=== PATIENT | female | born 1985 | race Caucasian/White ===

== ENCOUNTER 2016-10-24 09:19 | Inpatient (IN) | payer OTHER ==
--- NOTE | 2016-10-24 10:05 | OBHP ---
Datetime: 10/24/2016 09:52 IP Adm Impression: Term, intrauterine ; Active labor; Intact Membranes IP Chief Complaint Other: 31 year old at 39 weeks, previous C/Section scheduled for IP Admit Plan: Admit to unit; Initiate Section protocol Admit Comment, IP Provider: Active Labor, Previous C/Section for planned C/Section tomorrow. Admit f or Repeat C/Section. Reassuring Status Pelvic Type - PN: Adequate Extremities - PN: Normal Abdomen - PN: Normal Back - PN: Normal Breast - PN: Not Done Lungs - PN: Normal Heart - PN: Normal Thyroid - PN: Not Done Neurologic - PN: Not Done HEENT - PN: Not Done General - PN: Normal Weight - Estimated: 3100 Presentation-Admit: Vertex FHR - Baseline A Provider: 140 Membranes, Provider: Intact Contraction Comments Provider: Q 4min. Gestation - Est Wks by US: 39.0 EGA AdmitDate IP: 39.0 Vital Signs Provider: Reviewed; Within Normal Limits IP Chief Complaint: Uterine contractions NICHD Variability Prov Fetus A: Moderate 6-25bpm FHR Category Provider Fetus A: Category I NICHD Decel Fetus A IP Provider: None Dilatation, Provider: 1 Effacement, Provider: 50 Station, Provider: -2 Genitourinary Exam: Normal DTRs - PN: Normal
[2016-10-24] MEDS ORDERED: cefOXitin IV 2 gm in Dextrose 2 GM/50 ML BAG IVPB ONE ×2 (10:06→10:58)
[2016-10-24] MEDS ORDERED: Sodium Citrate/Citric Acid 15 ml Sol PO ONE (10:06)
[2016-10-24 10:10] VITALS: BMI 26.5
[2016-10-24] MEDS ORDERED: Lactated Ringer's 1,000 ML IV SCH ×2 (10:15→12:30)
[2016-10-24 10:37] LABS: BASO # 0.1 K/uL (0.0-0.2); BASO % 0.7 % (0.0-2.0); EOS % 0.3 % (0.0-4.0); HEMATOCRIT 36.4 % (34.0-47.0); LYMPH # 1.3 K/uL (1.0-4.3); LYMPH % 13.7 % (20.0-40.0); MEAN CELL VOLUME 85.9 fL (81.0-99.0); MEAN CORPUSCULAR HGB CONC 32.6 g/dL (33.0-37.0); MEAN PLATELET VOLUME 8.5 fL (7.2-11.7); MONO # 0.4 K/uL (0.0-0.8); MONO % 4.1 % (0.0-10.0); NRBC % 0.1 % (0.0-2.0); RED CELL DISTRIBUTION WIDTH 19.1 % (11.5-14.5); WHITE BLOOD COUNT 9.2 K/uL (4.8-10.8)
[2016-10-24 10:47] LABS: URINE BACTERIA MOD (<OCC); URINE BILIRUBIN NEGATIVE (NEGATIVE); URINE BLOOD 3+ (NEGATIVE); URINE COLOR Yellow (YELLOW); URINE GLUCOSE (UA) NORMAL (Normal); URINE KETONE NEGATIVE (NEGATIVE); URINE LEUKOCYTE ESTERASE TRACE Leu/uL (Negative); URINE PROTEIN NEGATIVE (NEGATIVE); URINE UROBILINOGEN NORMAL mg/dL (0.2-1.0); WBC URINE 5 /hpf (0-5)
--- NOTE | 2016-10-24 10:54 | OBPN ---
Datetime: 10/24/2016 10:43 IP Progress Impression: Reassuring heart rate IP Informed Consent Obtain: Vaginal Delivery; Risks, Benefits and Alternatives Discussed IP Procedures: Sterile Vag Exam IP Progress Plan: Continue present management; Cervical Ripening; Anticipate Vaginal Delivery Membranes, Provider: Intact Contraction Comments Provider: Q 2min. FHR - Baseline A Provider: 150 Gestation - Est Wks by US: 39.0 Weight - Estimated: 3300 Presentation-Admit: Vertex IP Progress Note Comment: Assumed care of patient admittted for labor induction for Maternal Gestati onal Diabetes. Cervidil removed. Will continue to ripen cervix with Cytotec. NICHD Accel Fetus A IP Provider: 15X15 FHR Category Provider Fetus A: Category I NICHD Variability Prov Fetus A: Moderate 6-25bpm Dilatation, Provider: FT Effacement, Provider: 50 Station, Provider: -2 NICHD Decel Fetus A IP Provider: None Datetime: 10/24/2016 09:52 Vital Signs Provider: Reviewed; Within Normal Limits
[2016-10-24] MEDS ORDERED: Morphine 1 mg/ml preservative-free Inj(Duramorph) ONE (10:55)
[2016-10-24 10:56] LABS: GFR AFRICAN-AMERICAN > 60; GLUCOSE,RANDOM 78 mg/dL (65-105)
[2016-10-24 10:59] LABS: RBC URINE 12 /hpf (0-3)
[2016-10-24] MEDS ORDERED: Oxytocin 20 units in LR 2,000 ML IV ONE (11:20)
[2016-10-24] MEDS ORDERED: HYDROmorphone 0.5 mg/0.5 ml ISec IVP PRN (11:27)
[2016-10-24] MEDS ORDERED: DiphenhydrAMINE 50 mg/ml Inj IVP PRN (11:29)
[2016-10-24] MEDS ORDERED: Midazolam 2 MG/2 ML VIAL ONE (11:41)
[2016-10-24] MEDS ORDERED: Hydrocodone/Acetaminophen 5 mg /300 mg Tab PO PRN (12:28)
[2016-10-24] MEDS: Simethicone 80 mg Chewtab PO SCH ×2 (17:54→22:31)
[2016-10-25 08:43] LABS: HEMATOCRIT 31.6 % (34.0-47.0); MEAN CORPUSCULAR HEMOGLOBIN 28.2 pg (27.0-31.0); MEAN CORPUSCULAR HGB CONC 32.8 g/dL (33.0-37.0); MEAN PLATELET VOLUME 8.5 fL (7.2-11.7); RED CELL DISTRIBUTION WIDTH 19.4 % (11.5-14.5); WHITE BLOOD COUNT 10.2 K/uL (4.8-10.8)
[2016-10-25] MEDS: Simethicone 80 mg Chewtab PO SCH ×4 (09:38→23:08)
[2016-10-25] MEDS: Prenatal Multivit/Folic Acid/Iron Tab PO SCH (09:38)
[2016-10-25] MEDS ORDERED: Bisacodyl 5mg EC Tab PO ONE (12:31)
[2016-10-25] MEDS: Enoxaparin 40 mg Syringe SC SCH (14:40)
[2016-10-26 08:19] VITALS: RESP 20
[2016-10-26] MEDS: Prenatal Multivit/Folic Acid/Iron Tab PO SCH (09:21)
[2016-10-26] MEDS: Simethicone 80 mg Chewtab PO SCH ×4 (09:21→23:00)
[2016-10-26] MEDS: Enoxaparin 40 mg Syringe SC SCH (09:22)
--- NOTE | 2016-10-26 11:51 | OBPPN ---
Datetime: 10/26/2016 11:50 PP Breasts Prov: Normal PP Heart Prov: Normal PP Lungs Prov: Normal PP Abdomen/Uterus Prov: Normal PP Lochia Prov: Normal PP Vulva/Perineum Prov: Normal PP CVA Tenderness Prov: Normal PP Extremities Prov: Normal PP C/S Incision Prov: Normal PP Progress Prov: Normal PP Impression Prov: Normal progression PP Plan Prov: Continue present management IP PP Procedures: None Datetime: 10/25/2016 11:45 PP Pain Prov: Within normal limits
--- NOTE | 2016-10-26 12:16 | OBDCSUM ---
Datetime: 10/26/2016 12:11 Discharged to, Provider: Home Follow up at, Provider: Dr. Bryson Disch Instr Activity: Normal activity; Bedrest; May be up to bathroom; May be up for meals; May Show er Disch Instr Diet: Regular Discharge Instructions, Provider: Routine instructions given Discharge Diagnosis, Provider: Term Delivered Follow up in weeks, Provider: 2 weeks Disch Referrals: None Disch Activity Restrictions: No exercising; No lifting; No driving; Minimize walking; Minimize stair -climbing; No sexual activity; Nothing in vagina - [place], tampons, douche Discharge Diagnosis Prov Other: Nuchal cord, meconium Contraception after Delivery: Not Planning to Use
[2016-10-27 08:11] VITALS: BP 119/81; PULSE 98; TEMP 97.2; O2SAT 100
[2016-10-27] MEDS: Enoxaparin 40 mg Syringe SC SCH (09:48)
[2016-10-27] MEDS: Simethicone 80 mg Chewtab PO SCH (09:48)
[2016-10-27] MEDS: Prenatal Multivit/Folic Acid/Iron Tab PO SCH (09:48)
--- NOTE | 2016-10-31 08:06 | OP ---
PROCEDURE DATE: 10/24/2016 NATURE OF OPERATION: Repeat section. ATTENDING AND OPERATING SURGEON: Dr. Eamon Bryson MARINE STRUCTURAL WELDER: Dr. Gagnon MAMMOGRAPHY TECH: Dr. Wang KIND OF ANESTHESIA: Spinal. PREOPERATIVE DIAGNOSES: A 39-week , previous section, in labor. POSTOPERATIVE DIAGNOSES: A live female, 7 pounds 14 ounces, 9 and 9, vertex, nuchal cord x 1 a nd meconium. PROCEDURE: The patient was placed in a supine position after the spinal anesthesia. The abdomen was prepped and draped for a Pfannenstiel incision. A Pfannenstiel incision was made between the symphy sis pubis and the umbilicus and was carried down to rectus fascia. The fascia was cleaned and incise d the length of the incision. The recti were retracted laterally. The transversalis fascia identifi ed and mobilized superiorly. The peritoneum was then incised the length of the incision. The vesico uterine fold of the visceral peritoneum was identified, incised transversely between the round ligame nts. The bladder flap was developed and mobilized inferiorly by blunt dissection. A transverse inci heather was made into the anterior wall of the lower uterine segment and extended laterally toward the r ound ligaments. Membranes were incised and the amniotic fluid shows meconium stain. The patient was delivered from the OT position of a living female in good condition at exactly 11:21 a.m. on 10/24/2016, 9 and 9. There was a cord around the neck x 1, presenting part was floating. Place nta was on the posterior wall near the fundus. Membranes and placenta were completely removed manual ly. The uterus was closed in 2 layers with continuous suture of chromic #1 gut, the first layer incl uding myometrium, second layer imbricating the myometrium. The bladder flap was reattached with cont inuous suture of chromic #2-0 catgut on an atraumatic needle. There were moderate pelvic adhesions n oted. The uterus was well contracted. Tubes and ovaries were normal. Hemostasis was satisfactory a nd lap and sponge counts were reported as correct. Abdomen was closed in layers, peritoneum continuo us suture of chromic #0 catgut on an atraumatic needle, fascia running interlocking sutures of 0 Vicr yl, subcutaneous tissue was closed with the #2-0 plain and the skin was closed with the ramesh. The patient tolerated the procedure well and was sent to the recovery room in satisfactory condition. Eamon Bryson MD cc: 38 TT: 10/31/2016 08:05:32 en
--- NOTE | 2016-11-08 17:31 | OBDS ---
DELIVERY PERSONNEL Delivery Doctor: Kailey Bryson MD Scrub Nurse: Mickie Fitzgerald OBT Continuous Improvement Black Belt: Danuta Carpio RN Anesthesiologist: Cynthia Wang MD Ironworker Apprentice Shop: Dee Dee Garcia MATERNAL INFORMATION Delivery Anesthesia: Spinal Estimated Blood Loss (ml): 500 Placenta Cultured: No Maternal Complications: None RN Comments: uneventful delivery of 39 wek IUP, delivered via repeat to a viable baby girl w/APGARS 9,9. Provider Comments: Uneventful C/Section LABOR SUMMARY EDC: 10/31/2016 00:00 No. Babies in Womb: 1 Attempted: No Labor Anesthesia: None LABOR INFORMATION Reason for Induction: Not Applicable Onset of Labor: 10/24/2016 03:00 Oxytocin: N/A Group B Beta Strep: Negative Antibiotics # of Doses: 1 Antibiotics Time of Last Dose: 1055 Steroids Given: None Reason Steroids Not Administered: Not Applicable MEMBRANES Membranes Rupture Method: Artificial Rupture of Membranes: 10/24/2016 11:22 Length of Rupture (hrs): -0.02 Amniotic Fluid Color: Clear Amniotic Fluid Amount: Moderate Amniotic Fluid Odor: Normal STAGES OF LABOR Stage 3 hrs: 0 Stage 3 min: 1 Total Time in Labor hrs: 8 Total Time in Labor min: 22 VAGINAL DELIVERY Episiotomy: None Laceration Extension: N/A Laceration Type: None Laceration Repair: Not Applicable Sponge Count Correct: N/A CSECTION DELIVERY Primary Indication: Repeat Elective Other Primary Indication: LABOR PAINS. Secondary Indication: Repeat Elective CSection Urgency: Emergency CSection Incidence: Repeat Labor: Labor Elective: Elective CSection Incision: Lower Uterine Transverse BABY A INFORMATION Delivery Date/Time: 10/24/2016 11:21 Method of Delivery: Born in Route : No : N/A Forceps: N/A Vacuum Extraction: N/A Shoulder Dystocia : No SHOULDER DYSTOCIA BABY A Delivery Date/Time: 10/24/2016 11:21 PRESENTATION/POSITION BABY A Presentation: Cephalic Cephalic Presentation: Vertex Vertex Position: Right Occipital Posterior Breech Presentation: N/A PLACENTA INFORMATION BABY A Placenta Delivery Time : 10/24/2016 11:22 Placenta Method of Delivery: Manual Removal Placenta Status: Delivered SCORES BABY A Heart Rate 1 min: >100 bpm Resp Effort 1 min: Good Cry Reflex Irritability 1 min: Cough or Sneeze or Pulls Away Muscle Tone 1 min: Active Motion Color 1 min: Body [place], Extremities Blue Resuscitation Effort 1 min: N/A SCORE 1 MIN: 9 Heart Rate 5 min: >100 bpm Resp Effort 5 min: Good Cry Reflex Irritability 5 min: Cough or Sneeze or Pulls Away Muscle Tone 5 min: Active Motion Color 5 min: Body [place], Extremities Blue Resuscitation Effort 5 min: N/A SCORE 5 MIN: 9 INFORMATION BABY A Gestational Age at Delivery: 39.0 Gestational Status: Term Outcome : Liveborn Infant Condition : Stable Infant Sex: Female IDENTIFICATION/MEDS BABY A ID Band Number: [id number] ID Band Location: Left Leg; Left Arm Sensor Applied: Yes Sensor Number: [id number] Sensor Location : Cord Clamp WEIGHT/LENGTH BABY A Infant Birthweight (gms): 3585 Weight (lb): 7 Weight (oz): 14 Length Inches: 20.00 Length cms: 50.8 CORD INFORMATION BABY A No. Cord Vessels: 3 Nuchal Cord : N/A Cord Blood Taken: Yes Infant Suction: Mouth; Nose ASSESSMENT BABY A Infant Complications: None Physical Findings at Delivery: Within Normal Limits Respirations: Appears Normal Spool Winder/ALS Called : No Transferred To: Remains with Mother
== END 2016-10-27 12:30 | disposition home or self-care (01) | DRG 766 ==
LOC: C.EROB 09:19 → C.4D 09:46 → C.4M 15:30
PROVIDERS: ADMIT Obstetrics & Gynecology; ATTEND Obstetrics & Gynecology
PROC: 10D00Z1 Extraction of Products of Conception, Low, Open Approach (ICD-10-PCS; principal; 2016-10-24)
DX: O34.211 Maternal care for low transverse scar from previous cesarean delivery (principal); Z3A.39 39 weeks gestation of pregnancy; Z37.0 Single live birth